=== PATIENT | female | born 1935 | race African-American/Black ===

== ENCOUNTER 2018-01-14 15:02 | Inpatient (IN) | payer MEDICARE ==
[2018-01-14 16:18] LABS: ADD MAN DIFF? NO
[2018-01-14 16:22] LABS: BASO # 0.1 x10^3/uL (0.0-0.2); BASO % 2 % (0-3); EOS # 0.1 x10^3/uL (0.0-0.7); EOS % 1 % (0-3); HEMATOCRIT 39.2 % (36.0-47.0); HEMOGLOBIN 12.4 g/dL (12.0-15.5); LYMPH # 1.2 x10^3/uL (1.0-4.8); LYMPH % 21 % (24-48); MEAN CORPUSCULAR HEMOGLOBIN 25 pg (25-35); MEAN CORPUSCULAR HGB CONC 32 g/dL (31-37); MEAN CORPUSCULAR VOLUME 78 fL (79-100); MONO # 0.6 x10^3/uL (0.0-1.1); MONO % 10 % (0-9); NEUT # 3.8 x10^3uL (1.8-7.7); NEUT % 66 % (31-73); PLATELET COUNT 327 x10^3/uL (140-400); RED BLOOD COUNT 5.02 x10^6/uL (3.50-5.40); WHITE BLOOD COUNT 5.7 x10^3/uL (4.0-11.0)
[2018-01-14] MEDS: dilTIAZem IV PUSH 25 MG/5 ML VIAL IVP ×2 (16:23→16:45)
[2018-01-14] MEDS: DEXTROSE 5% IV (16:30)
[2018-01-14] MEDS: DILTIAZEM IV (16:30)
[2018-01-14 16:34] LABS: ANION GAP 9 (6-14); BLOOD UREA NITROGEN 24 mg/dL (7-20); BUN/CREATININE RATIO 20 (6-20); CALCIUM 8.5 mg/dL (8.5-10.1); CARBON DIOXIDE 31 mmol/L (21-32); CHLORIDE 105 mmol/L (98-107); CREATININE 1.2 mg/dL (0.6-1.0); GFR 52.3; GLUCOSE 84 mg/dL (70-99); POTASSIUM 4.1 mmol/L (3.5-5.1); SODIUM 145 mmol/L (136-145)
[2018-01-14 16:41] LABS: ALBUMIN 2.8 g/dL (3.4-5.0); ALBUMIN/GLOBULIN RATIO 0.6 (1.0-1.7); ALK PHOS 61 U/L (46-116); ALT (SGPT) 25 U/L (14-59); AST (SGOT) 28 U/L (15-37); MAGNESIUM 1.9 mg/dL (1.8-2.4); TOTAL BILIRUBIN 1.4 mg/dL (0.2-1.0); TOTAL PROTEIN 7.3 g/dL (6.4-8.2)
[2018-01-14 16:42] LABS: TROPONINI 0.047 ng/mL (0.000-0.055)
[2018-01-14 17:10] LABS: NT-PRO BNP 3613 pg/mL (0-449)
[2018-01-14 17:10] LABS: CKMB INDEX 1.6 % (0-4); CKMB MASS 1.8 ng/mL (0.0-3.6); CREATINE KINASE 115 U/L (26-192)
[2018-01-14] MEDS: APIXABAN 2.5 MG TABLET. PO (20:42)
[2018-01-14 21:03] LABS: TROPONINI 0.043 ng/mL (0.000-0.055)
[2018-01-15] MEDS: FUROSEMIDE 40 MG TABLET. PO (09:00)
[2018-01-15] MEDS: ATORVASTATIN CALCIUM 10 MG TABLET. PO (09:00)
[2018-01-15] MEDS ORDERED: ENOXAPARIN 40 MG/0.4 ML SYRINGE. SQ (09:00)
[2018-01-15] MEDS ORDERED: DIGOXIN IV 500 MCG/2 ML AMPUL. IV (11:30)
[2018-01-15] MEDS ORDERED: METOPROLOL TARTRATE 5 MG/5 ML VIAL. IVP (11:30)
[2018-01-15] MEDS: METOPROLOL TARTRATE 5 MG/5 ML VIAL. IVP (11:32)
[2018-01-15] MEDS: DIGOXIN IV 500 MCG/2 ML AMPUL. IV (11:33)
[2018-01-15] MEDS: METOPROLOL SUCC 24HR ER 50 MG TAB.ER.24H. PO (11:34)
[2018-01-15] MEDS: APIXABAN 2.5 MG TABLET. PO ×2 (11:34→20:39)
[2018-01-15] MEDS: FERROUS SULFATE 325 MG TABLET. PO (11:34)
[2018-01-15 12:25] LABS: ANION GAP 6 (6-14); BLOOD UREA NITROGEN 24 mg/dL (7-20); CALCIUM 9.1 mg/dL (8.5-10.1); CARBON DIOXIDE 32 mmol/L (21-32); CHLORIDE 104 mmol/L (98-107); CREATININE 1.3 mg/dL (0.6-1.0); GFR 47.7; GLUCOSE 94 mg/dL (70-99); POTASSIUM 4.1 mmol/L (3.5-5.1); SODIUM 142 mmol/L (136-145)
[2018-01-15 12:28] LABS: MAGNESIUM 2.1 mg/dL (1.8-2.4)
[2018-01-15 12:34] LABS: CHOLESTEROL 96 mg/dL (0-200); CHOLESTEROL/HDL RATIO 2.3; HDLC 42 mg/dL (40-60); LDLC 42 mg/dL (0-100); NON-HDL CHOLESTEROL 54 mg/dL (0-129); TRIGLYCERIDES 62 mg/dL (0-150); VLDLC 12 mg/dL (0-40)
[2018-01-15 12:43] LABS: THYROID STIM HORMONE (TSH) 1.464 uIU/mL (0.358-3.74)
[2018-01-15] MEDS: ANTI-COAG MONITOR BY PHARMACY. MC (13:59)
[2018-01-15] MEDS: FUROSEMIDE 40 MG/4 ML VIAL. IVP (14:03)
[2018-01-16 05:03] LABS: ADD MAN DIFF? NO
[2018-01-16 05:06] LABS: BASO # 0.1 x10^3/uL (0.0-0.2); BASO % 2 % (0-3); EOS % 1 % (0-3); HEMATOCRIT 37.9 % (36.0-47.0); HEMOGLOBIN 11.9 g/dL (12.0-15.5); LYMPH # 1.6 x10^3/uL (1.0-4.8); LYMPH % 27 % (24-48); MEAN CORPUSCULAR HEMOGLOBIN 24 pg (25-35); MEAN CORPUSCULAR HGB CONC 31 g/dL (31-37); MEAN CORPUSCULAR VOLUME 78 fL (79-100); MONO # 0.6 x10^3/uL (0.0-1.1); MONO % 10 % (0-9); NEUT # 3.6 x10^3uL (1.8-7.7); NEUT % 60 % (31-73); PLATELET COUNT 282 x10^3/uL (140-400); RED BLOOD COUNT 4.86 x10^6/uL (3.50-5.40); RED CELL DISTRIBUTION WIDTH 19.3 % (11.5-14.5); WHITE BLOOD COUNT 5.9 x10^3/uL (4.0-11.0)
[2018-01-16 05:36] LABS: ANION GAP 3 (6-14); BLOOD UREA NITROGEN 24 mg/dL (7-20); CALCIUM 8.5 mg/dL (8.5-10.1); CARBON DIOXIDE 32 mmol/L (21-32); CHLORIDE 107 mmol/L (98-107); CREATININE 1.3 mg/dL (0.6-1.0); GFR 47.7; GLUCOSE 79 mg/dL (70-99); POTASSIUM 3.9 mmol/L (3.5-5.1); SODIUM 142 mmol/L (136-145)
[2018-01-16] MEDS: FERROUS SULFATE 325 MG TABLET. PO (08:49)
[2018-01-16] MEDS: ATORVASTATIN CALCIUM 10 MG TABLET. PO (08:49)
[2018-01-16] MEDS: APIXABAN 2.5 MG TABLET. PO ×2 (08:49→21:21)
[2018-01-16] MEDS: FUROSEMIDE 40 MG/4 ML VIAL. IVP ×2 (08:50→09:15)
[2018-01-16] MEDS: FUROSEMIDE 40 MG TABLET. PO (08:50)
[2018-01-16] MEDS: ANTI-COAG MONITOR BY PHARMACY. MC (08:53)
[2018-01-16] MEDS ORDERED: LISINOPRIL 20 MG TABLET PO (09:00)
[2018-01-16] MEDS: METOPROLOL SUCC 24HR ER 100 MG TAB.ER.24H. PO (10:52)
[2018-01-16] MEDS: LOSARTAN POTASSIUM 25 MG TABLET. PO (15:29)
[2018-01-17] MEDS: cloNIDine HCL 0.1 MG TABLET PO ×2 (02:28→23:41)
[2018-01-17 06:32] LABS: ANION GAP 3 (6-14); BLOOD UREA NITROGEN 22 mg/dL (7-20); CALCIUM 8.4 mg/dL (8.5-10.1); CARBON DIOXIDE 31 mmol/L (21-32); CHLORIDE 107 mmol/L (98-107); CREATININE 1.4 mg/dL (0.6-1.0); GFR 43.8; GLUCOSE 77 mg/dL (70-99); POTASSIUM 3.7 mmol/L (3.5-5.1); SODIUM 141 mmol/L (136-145)
[2018-01-17] MEDS: LOSARTAN POTASSIUM 25 MG TABLET. PO (09:00)
[2018-01-17] MEDS: REGADENOSON 0.4 MG/5 ML DISP.SYRIN. IV (09:48)
[2018-01-17] MEDS: FERROUS SULFATE 325 MG TABLET. PO (10:15)
[2018-01-17] MEDS: FUROSEMIDE 40 MG TABLET. PO (10:15)
[2018-01-17] MEDS: ATORVASTATIN CALCIUM 10 MG TABLET. PO (10:15)
[2018-01-17] MEDS: APIXABAN 2.5 MG TABLET. PO ×2 (10:16→21:03)
[2018-01-17] MEDS: METOPROLOL SUCC 24HR ER 100 MG TAB.ER.24H. PO (10:16)
[2018-01-17] MEDS: LOSARTAN POTASSIUM 50 MG TABLET. PO (10:16)
[2018-01-18] MEDS: ATORVASTATIN CALCIUM 10 MG TABLET. PO (08:24)
[2018-01-18] MEDS: FUROSEMIDE 40 MG TABLET. PO (08:25)
[2018-01-18] MEDS: APIXABAN 2.5 MG TABLET. PO (08:25)
[2018-01-18] MEDS: METOPROLOL SUCC 24HR ER 100 MG TAB.ER.24H. PO (08:25)
[2018-01-18] MEDS: LOSARTAN POTASSIUM 50 MG TABLET. PO (08:25)
[2018-01-18] MEDS: FERROUS SULFATE 325 MG TABLET. PO (08:25)
== END 2018-01-18 16:06 | disposition home or self-care (01) | DRG 682 ==
LOC: ER 15:02 → 2 NORTH 17:11
DX: N17.9 Acute kidney failure, unspecified (principal); I50.43 Acute on chronic combined systolic (congestive) and diastolic (congestive) heart failure; E44.0 Moderate protein-calorie malnutrition; I48.91 Unspecified atrial fibrillation; J44.9 Chronic obstructive pulmonary disease, unspecified; E55.9 Vitamin D deficiency, unspecified; E78.5 Hyperlipidemia, unspecified; I25.10 Atherosclerotic heart disease of native coronary artery without angina pectoris; I13.0 Hypertensive heart and chronic kidney disease with heart failure and stage 1 through stage 4 chronic kidney disease, or unspecified chronic kidney disease; I48.92 Unspecified atrial flutter; N18.3 Chronic kidney disease, stage 3 (moderate); S80.822A Blister (nonthermal), left lower leg, initial encounter; M19.90 Unspecified osteoarthritis, unspecified site; Z79.82 Long term (current) use of aspirin; Z82.49 Family history of ischemic heart disease and other diseases of the circulatory system; Z87.891 Personal history of nicotine dependence; Z90.710 Acquired absence of both cervix and uterus; Z95.1 Presence of aortocoronary bypass graft; Z90.722 Acquired absence of ovaries, bilateral; Z79.899 Other long term (current) drug therapy; Z68.20 Body mass index [BMI] 20.0-20.9, adult
CPT/HCPCS: 36415; 71045; 71046; 71250; 78452; 80048; 80053; 80061; 82553; 83735; 83880; 84443; 84484; 85025; 93005; 93017; 93306; 96365; 96374; 96375; 96376; 97110-GO; 97116-GP; 97162-GP; 97165-GO; 97530-GO; 97530-GP; 97535-GO; 99285; 99285-25; A9500; J1160; J1940; J2785; J3490

== ENCOUNTER 2018-02-24 20:39 | Inpatient (IN) | payer MEDICARE ==
[2018-02-24 21:35] LABS: ADD MAN DIFF? NO
[2018-02-24 21:38] LABS: BASO # 0.1 x10^3/uL (0.0-0.2); BASO % 1 % (0-3); EOS # 0.1 x10^3/uL (0.0-0.7); EOS % 1 % (0-3); HEMATOCRIT 41.2 % (36.0-47.0); LYMPH # 1.2 x10^3/uL (1.0-4.8); LYMPH % 19 % (24-48); MEAN CORPUSCULAR HEMOGLOBIN 25 pg (25-35); MEAN CORPUSCULAR HGB CONC 32 g/dL (31-37); MEAN CORPUSCULAR VOLUME 79 fL (79-100); MONO # 0.6 x10^3/uL (0.0-1.1); MONO % 10 % (0-9); NEUT # 4.4 x10^3uL (1.8-7.7); NEUT % 70 % (31-73); PLATELET COUNT 276 x10^3/uL (140-400); RED BLOOD COUNT 5.24 x10^6/uL (3.50-5.40); RED CELL DISTRIBUTION WIDTH 23.1 % (11.5-14.5); WHITE BLOOD COUNT 6.4 x10^3/uL (4.0-11.0)
[2018-02-24 21:48] LABS: ANION GAP 8 (6-14); BLOOD UREA NITROGEN 32 mg/dL (7-20); CALCIUM 8.8 mg/dL (8.5-10.1); CARBON DIOXIDE 31 mmol/L (21-32); CHLORIDE 104 mmol/L (98-107); CREATININE 1.4 mg/dL (0.6-1.0); GFR 43.8; GLUCOSE 98 mg/dL (70-99); POTASSIUM 3.9 mmol/L (3.5-5.1); SODIUM 143 mmol/L (136-145)
[2018-02-24 21:56] LABS: INR 1.7 (0.8-1.1)
[2018-02-24 21:58] LABS: TROPONINI 0.043 ng/mL (0.000-0.055)
[2018-02-24 22:02] LABS: NT-PRO BNP 2962 pg/mL (0-449)
[2018-02-24] MEDS: VERAPAMIL 5 MG/2 ML VIAL. IV ×2 (22:15→22:47)
[2018-02-24 22:22] LABS: PLT ESTIMATE ADEQUATE (ADEQUATE)
[2018-02-24 22:24] LABS: ANISOCYTOSIS MOD; TARGET CELLS FEW
[2018-02-24 22:25] LABS: SCHISTOCYTES FEW
[2018-02-24] MEDS ORDERED: ONDANSETRON PF 4 MG/2 ML VIAL. IV (23:45)
[2018-02-24] MEDS ORDERED: RIVAROXABAN 10 MG TABLET. PO (23:45)
[2018-02-25] MEDS: APIXABAN 2.5 MG TABLET. PO ×3 (00:16→20:21)
[2018-02-25] MEDS: METOPROLOL TART IMMED RELEASE 25 MG TABLET. PO (00:17)
[2018-02-25] MEDS: IPRATRPIUM/ALBUTEROL 0.5/2.5MG 3 ML NEBU. NEB ×3 (07:28→20:05)
[2018-02-25] MEDS ORDERED: ALBUTEROL SULFATE 2.5 MG/3 ML NEBU. NEB (08:00)
[2018-02-25] MEDS: BENZONATATE 100 MG CAPSULE. PO ×2 (14:41→20:21)
[2018-02-25] MEDS: amLODIPine BESYLATE 5 MG TABLET PO (14:42)
[2018-02-25] MEDS: FUROSEMIDE 40 MG TABLET. PO (14:42)
[2018-02-25] MEDS: FERROUS SULFATE 325 MG TABLET. PO (14:42)
[2018-02-25] MEDS: METOPROLOL SUCC 24HR ER 50 MG TAB.ER.24H. PO (14:43)
[2018-02-25] MEDS: ANTI-COAG MONITOR BY PHARMACY. MC (16:51)
[2018-02-25] MEDS: ACETAMINOPHEN 325 MG TABLET. PO (20:21)
[2018-02-25] MEDS: ATORVASTATIN CALCIUM 10 MG TABLET. PO (20:21)
[2018-02-25] MEDS ORDERED: APIXABAN 2.5 MG TABLET. PO (21:00)
[2018-02-26 05:12] LABS: ADD MAN DIFF? NO
[2018-02-26 05:33] LABS: ANION GAP 10 (6-14); BLOOD UREA NITROGEN 38 mg/dL (7-20); CALCIUM 9.3 mg/dL (8.5-10.1); CARBON DIOXIDE 28 mmol/L (21-32); CHLORIDE 103 mmol/L (98-107); CREATININE 2.1 mg/dL (0.6-1.0); GFR 27.4; GLUCOSE 78 mg/dL (70-99); POTASSIUM 4.3 mmol/L (3.5-5.1); SODIUM 141 mmol/L (136-145)
[2018-02-26 06:15] LABS: BASO # 0.1 x10^3/uL (0.0-0.2); BASO % 1 % (0-3); EOS % 0 % (0-3); HEMATOCRIT 40.5 % (36.0-47.0); HEMOGLOBIN 12.7 g/dL (12.0-15.5); LYMPH # 1.7 x10^3/uL (1.0-4.8); LYMPH % 24 % (24-48); MEAN CORPUSCULAR HEMOGLOBIN 25 pg (25-35); MEAN CORPUSCULAR HGB CONC 31 g/dL (31-37); MEAN CORPUSCULAR VOLUME 79 fL (79-100); MONO # 0.6 x10^3/uL (0.0-1.1); MONO % 9 % (0-9); NEUT # 4.6 x10^3uL (1.8-7.7); NEUT % 65 % (31-73); PLATELET COUNT 256 x10^3/uL (140-400); RED BLOOD COUNT 5.11 x10^6/uL (3.50-5.40); RED CELL DISTRIBUTION WIDTH 23.2 % (11.5-14.5)
[2018-02-26] MEDS: IPRATRPIUM/ALBUTEROL 0.5/2.5MG 3 ML NEBU. NEB ×4 (08:24→20:24)
[2018-02-26] MEDS: APIXABAN 2.5 MG TABLET. PO ×2 (08:43→20:29)
[2018-02-26] MEDS: BENZONATATE 100 MG CAPSULE. PO ×3 (08:43→20:29)
[2018-02-26] MEDS: amLODIPine BESYLATE 5 MG TABLET PO (08:43)
[2018-02-26] MEDS: FERROUS SULFATE 325 MG TABLET. PO (08:43)
[2018-02-26] MEDS: METOPROLOL SUCC 24HR ER 50 MG TAB.ER.24H. PO (08:43)
[2018-02-27 03:59] LABS: ANION GAP 5 (6-14); BLOOD UREA NITROGEN 47 mg/dL (7-20); CALCIUM 8.9 mg/dL (8.5-10.1); CARBON DIOXIDE 30 mmol/L (21-32); CHLORIDE 102 mmol/L (98-107); CREATININE 2.3 mg/dL (0.6-1.0); GFR 24.7; GLUCOSE 78 mg/dL (70-99); POTASSIUM 3.7 mmol/L (3.5-5.1); SODIUM 137 mmol/L (136-145)
[2018-02-27] MEDS: IPRATRPIUM/ALBUTEROL 0.5/2.5MG 3 ML NEBU. NEB ×4 (07:25→19:39)
[2018-02-27] MEDS: ANTI-COAG MONITOR BY PHARMACY. MC (08:55)
[2018-02-27] MEDS: FERROUS SULFATE 325 MG TABLET. PO (09:03)
[2018-02-27] MEDS: BENZONATATE 100 MG CAPSULE. PO ×3 (09:03→20:52)
[2018-02-27] MEDS: METOPROLOL SUCC 24HR ER 50 MG TAB.ER.24H. PO (09:03)
[2018-02-27] MEDS: amLODIPine BESYLATE 2.5 MG TABLET PO (09:03)
[2018-02-27] MEDS: APIXABAN 2.5 MG TABLET. PO ×2 (09:03→20:52)
[2018-02-27] MEDS: IV NORMAL SALINE 1000ML BAG 1,000 ML IV ×2 (09:04→23:00)
[2018-02-28 04:23] LABS: ANION GAP 11 (6-14); BLOOD UREA NITROGEN 43 mg/dL (7-20); CALCIUM 8.7 mg/dL (8.5-10.1); CARBON DIOXIDE 25 mmol/L (21-32); CHLORIDE 103 mmol/L (98-107); CREATININE 2.2 mg/dL (0.6-1.0); GLUCOSE 79 mg/dL (70-99); POTASSIUM 3.7 mmol/L (3.5-5.1); SODIUM 139 mmol/L (136-145)
[2018-02-28] MEDS: IPRATRPIUM/ALBUTEROL 0.5/2.5MG 3 ML NEBU. NEB ×4 (08:00→19:42)
[2018-02-28] MEDS: APIXABAN 2.5 MG TABLET. PO ×2 (08:51→21:57)
[2018-02-28] MEDS: BENZONATATE 100 MG CAPSULE. PO ×3 (08:52→21:57)
[2018-02-28] MEDS: METOPROLOL SUCC 24HR ER 50 MG TAB.ER.24H. PO (08:52)
[2018-02-28] MEDS: FERROUS SULFATE 325 MG TABLET. PO (08:52)
[2018-02-28] MEDS: amLODIPine BESYLATE 2.5 MG TABLET PO (08:52)
[2018-02-28] MEDS: amLODIPine BESYLATE 5 MG TABLET PO (09:58)
[2018-02-28] MEDS: ANTI-COAG MONITOR BY PHARMACY. MC (10:28)
[2018-02-28] MEDS: IV NORMAL SALINE 1000ML BAG 1,000 ML IV (10:55)
[2018-02-28] MEDS: METOPROLOL TARTRATE 5 MG/5 ML VIAL. IVP (13:33)
[2018-02-28] MEDS: FUROSEMIDE 20 MG/2 ML VIAL. IVP (16:01)
[2018-02-28] MEDS: METOPROLOL TART IMMED RELEASE 25 MG TABLET. PO (17:43)
[2018-03-01] MEDS: METOPROLOL TART IMMED RELEASE 25 MG TABLET. PO ×3 (00:28→08:24)
[2018-03-01 05:48] LABS: ANION GAP 4 (6-14); BLOOD UREA NITROGEN 39 mg/dL (7-20); CALCIUM 8.6 mg/dL (8.5-10.1); CARBON DIOXIDE 30 mmol/L (21-32); CHLORIDE 104 mmol/L (98-107); CREATININE 1.8 mg/dL (0.6-1.0); GFR 32.8; GLUCOSE 69 mg/dL (70-99); POTASSIUM 4.4 mmol/L (3.5-5.1); SODIUM 138 mmol/L (136-145)
[2018-03-01] MEDS: ANTI-COAG MONITOR BY PHARMACY. MC (07:40)
[2018-03-01] MEDS: IPRATRPIUM/ALBUTEROL 0.5/2.5MG 3 ML NEBU. NEB ×2 (08:11→12:12)
[2018-03-01] MEDS: FERROUS SULFATE 325 MG TABLET. PO (08:23)
[2018-03-01] MEDS: FUROSEMIDE 20 MG TABLET PO (08:23)
[2018-03-01] MEDS: BENZONATATE 100 MG CAPSULE. PO ×2 (08:24→13:34)
[2018-03-01] MEDS: APIXABAN 2.5 MG TABLET. PO (08:24)
[2018-03-01] MEDS: amLODIPine BESYLATE 5 MG TABLET PO (08:24)
[2018-03-01] MEDS ORDERED: FUROSEMIDE 40 MG TABLET. PO (09:00)
[2018-03-01] MEDS: FUROSEMIDE 20 MG/2 ML VIAL. IVP (14:33)
[2018-03-01] MEDS ORDERED: METOPROLOL TART IMMED RELEASE 25 MG TABLET. PO (21:00)
== END 2018-03-01 16:32 | disposition home or self-care (01) | DRG 682 ==
LOC: 2 SOUTH 23:30 → ER 20:39
DX: N17.0 Acute kidney failure with tubular necrosis (principal); I50.43 Acute on chronic combined systolic (congestive) and diastolic (congestive) heart failure; I13.0 Hypertensive heart and chronic kidney disease with heart failure and stage 1 through stage 4 chronic kidney disease, or unspecified chronic kidney disease; I42.0 Dilated cardiomyopathy; I48.2 Chronic atrial fibrillation; D63.8 Anemia in other chronic diseases classified elsewhere; E78.00 Pure hypercholesterolemia, unspecified; E78.5 Hyperlipidemia, unspecified; F03.90 Unspecified dementia, unspecified severity, without behavioral disturbance, psychotic disturbance, mood disturbance, and anxiety; F17.210 Nicotine dependence, cigarettes, uncomplicated; I07.1 Rheumatic tricuspid insufficiency; I25.10 Atherosclerotic heart disease of native coronary artery without angina pectoris; I25.5 Ischemic cardiomyopathy; J44.9 Chronic obstructive pulmonary disease, unspecified; N18.3 Chronic kidney disease, stage 3 (moderate); Z79.01 Long term (current) use of anticoagulants; Z79.82 Long term (current) use of aspirin; Z82.49 Family history of ischemic heart disease and other diseases of the circulatory system; Z90.710 Acquired absence of both cervix and uterus; Z95.1 Presence of aortocoronary bypass graft; M19.90 Unspecified osteoarthritis, unspecified site; D64.9 Anemia, unspecified
CPT/HCPCS: 36415; 71045; 80048; 83880; 84484; 85025; 85610; 93005; 94640; 94760; 96376; 97161-GP; 97166-GO; 97530-GO; 97535-GO; 99285; 99285-25; J3490; J7030; J7620

== ENCOUNTER 2018-04-10 16:44 | Inpatient (IN) | payer MEDICARE ==
[2018-04-10 17:04] LABS: ADD MAN DIFF? NO
[2018-04-10 17:09] LABS: BASO % 1 % (0-3); EOS # 0.1 x10^3/uL (0.0-0.7); EOS % 1 % (0-3); HEMOGLOBIN 14.6 g/dL (12.0-15.5); LYMPH # 0.8 x10^3/uL (1.0-4.8); LYMPH % 14 % (24-48); MEAN CORPUSCULAR HEMOGLOBIN 26 pg (25-35); MEAN CORPUSCULAR HGB CONC 32 g/dL (31-37); MEAN CORPUSCULAR VOLUME 81 fL (79-100); MONO # 0.4 x10^3/uL (0.0-1.1); MONO % 7 % (0-9); NEUT # 4.5 x10^3uL (1.8-7.7); NEUT % 77 % (31-73); PLATELET COUNT 196 x10^3/uL (140-400); RED BLOOD COUNT 5.64 x10^6/uL (3.50-5.40); RED CELL DISTRIBUTION WIDTH 24.3 % (11.5-14.5); WHITE BLOOD COUNT 5.9 x10^3/uL (4.0-11.0)
[2018-04-10] MEDS: dilTIAZem INJ 125 MG in IV DEXTROSE 5% 100ML 100 ML IV (17:10)
[2018-04-10] MEDS: dilTIAZem IV PUSH 25 MG/5 ML VIAL IVP (17:10)
[2018-04-10 17:16] LABS: INR 1.4 (0.8-1.1); PROTHROMBIN TIME PATIENT 16.3 SEC (11.7-14.0)
[2018-04-10 17:17] LABS: ANION GAP 7 (6-14); BLOOD UREA NITROGEN 29 mg/dL (7-20); BUN/CREATININE RATIO 18 (6-20); CALCIUM 8.8 mg/dL (8.5-10.1); CARBON DIOXIDE 31 mmol/L (21-32); CHLORIDE 103 mmol/L (98-107); CREATININE 1.6 mg/dL (0.6-1.0); GFR 37.5; GLUCOSE 91 mg/dL (70-99); SODIUM 141 mmol/L (136-145)
[2018-04-10 17:23] LABS: ALBUMIN 2.6 g/dL (3.4-5.0); ALBUMIN/GLOBULIN RATIO 0.5 (1.0-1.7); ALK PHOS 66 U/L (46-116); ALT (SGPT) 21 U/L (14-59); AST (SGOT) 29 U/L (15-37); LIPASE 215 U/L (73-393); MAGNESIUM 1.9 mg/dL (1.8-2.4); TOTAL BILIRUBIN 2.2 mg/dL (0.2-1.0); TOTAL PROTEIN 7.5 g/dL (6.4-8.2)
[2018-04-10 17:24] LABS: TROPONINI 0.026 ng/mL (0.000-0.055)
[2018-04-10 17:31] LABS: NT-PRO BNP 4514 pg/mL (0-449)
[2018-04-10 17:31] LABS: CKMB INDEX 1.3 % (0-4); CKMB MASS 1.9 ng/mL (0.0-3.6); CREATINE KINASE 151 U/L (26-192)
[2018-04-10] MEDS: POTASSIUM CHLORIDE 20 MEQ TABLET.ER. PO (17:55)
[2018-04-10] MEDS: BUMETANIDE 1 MG/4 ML VIAL. IV (17:55)
[2018-04-10 19:21] LABS: ANISOCYTOSIS SLIGHT; PLT ESTIMATE ADEQUATE (ADEQUATE)
[2018-04-10 21:36] LABS: TROPONINI 0.029 ng/mL (0.000-0.055)
[2018-04-11] MEDS: dilTIAZem INJ 125 MG in IV DEXTROSE 5% 100ML 100 ML IV (01:57)
[2018-04-11 06:23] LABS: ANION GAP 7 (6-14); BLOOD UREA NITROGEN 28 mg/dL (7-20); CALCIUM 8.7 mg/dL (8.5-10.1); CARBON DIOXIDE 30 mmol/L (21-32); CHLORIDE 106 mmol/L (98-107); CREATININE 1.6 mg/dL (0.6-1.0); GFR 37.5; GLUCOSE 98 mg/dL (70-99); POTASSIUM 3.2 mmol/L (3.5-5.1); SODIUM 143 mmol/L (136-145)
[2018-04-11 08:42] LABS: MAGNESIUM 1.9 mg/dL (1.8-2.4)
[2018-04-11] MEDS: METOPROLOL SUCC 24HR ER 50 MG TAB.ER.24H. PO (08:47)
[2018-04-11] MEDS: FUROSEMIDE 40 MG/4 ML VIAL. IVP ×3 (08:47→21:11)
[2018-04-11] MEDS: POTASSIUM CHLORIDE 20 MEQ TABLET.ER. PO ×2 (08:47→17:59)
[2018-04-11] MEDS: FERROUS SULFATE 325 MG TABLET. PO (08:47)
[2018-04-11] MEDS: APIXABAN 2.5 MG TABLET. PO ×2 (08:47→21:05)
[2018-04-11 08:56] LABS: THYROID STIM HORMONE (TSH) 3.214 uIU/mL (0.358-3.74)
[2018-04-11] MEDS: METOPROLOL TART IMMED RELEASE 25 MG TABLET. PO ×4 (09:30→23:19)
[2018-04-11 10:31] LABS: BILIRUBIN,URINE NEGATIVE (NEG); CLARITY,URINE CLOUDY; COLOR,URINE AMBER; GLUCOSE,URINE NEGATIVE (NEG); NITRITE,URINE NEGATIVE (NEG); PROTEIN,URINE NEGATIVE (NEG-TRACE)
[2018-04-11 10:44] LABS: SQUAMOUS EPITHELIAL CELL,UR FEW /LPF
[2018-04-11 10:45] LABS: AMORPHOUS SEDIMENT,UR PRESENT /HPF; BACTERIA,URINE 0 /HPF (0-FEW); HYALINE CASTS, URINE FEW /HPF; RBC,URINE 0 /HPF (0-2); WBC,URINE 0 /HPF (0-4)
[2018-04-11] MEDS: ANTI-COAG MONITOR BY PHARMACY. MC (15:01)
[2018-04-11] MEDS: NYSTATIN TOPICAL POWDER 15GM BOTTLE. TP (21:05)
[2018-04-11] MEDS: FUROSEMIDE INJ 100 MG in IV NORMAL SALINE 100ML 100 ML IV (21:06)
[2018-04-11] MEDS: MILRINONE 20MG/100ML PREMIX 100 ML IV (21:08)
[2018-04-12 05:30] LABS: ANION GAP 10 (6-14); BLOOD UREA NITROGEN 32 mg/dL (7-20); CALCIUM 8.2 mg/dL (8.5-10.1); CARBON DIOXIDE 24 mmol/L (21-32); CHLORIDE 105 mmol/L (98-107); CREATININE 1.8 mg/dL (0.6-1.0); GFR 32.8; GLUCOSE 69 mg/dL (70-99); SODIUM 139 mmol/L (136-145)
[2018-04-12] MEDS: METOPROLOL TART IMMED RELEASE 25 MG TABLET. PO ×4 (06:06→23:01)
[2018-04-12] MEDS: APIXABAN 2.5 MG TABLET. PO ×2 (08:21→21:00)
[2018-04-12] MEDS: ALBUMIN HUMAN 25% 100 ML IV (08:22)
[2018-04-12] MEDS: POTASSIUM CHLORIDE 20 MEQ TABLET.ER. PO ×2 (08:22→18:09)
[2018-04-12] MEDS: NYSTATIN TOPICAL POWDER 15GM BOTTLE. TP ×2 (08:22→21:00)
[2018-04-12] MEDS: FERROUS SULFATE 325 MG TABLET. PO (08:22)
[2018-04-12] MEDS: ANTI-COAG MONITOR BY PHARMACY. MC (12:27)
[2018-04-12] MEDS ORDERED: LIDOCAINE 2% 20 ML VIAL. (14:36)
[2018-04-12] MEDS ORDERED: IODIXANOL 320 MG/ML 100 ML VIAL. (14:36)
[2018-04-12] MEDS ORDERED: CONTRAST GIVEN. MC (15:00)
[2018-04-12] MEDS: fentaNYL PF VIAL 100 MCG/2 ML VIAL IV (15:00)
[2018-04-12] MEDS: MIDAZOLAM HCL/PF 2 MG/2 ML VIAL. IV (15:00)
[2018-04-12] MEDS ORDERED: fentaNYL PF VIAL 100 MCG/2 ML VIAL (15:05)
[2018-04-12] MEDS ORDERED: MIDAZOLAM HCL/PF 2 MG/2 ML VIAL. (15:05)
[2018-04-12] MEDS ORDERED: HEPARIN for IV BOLUS 10,000 UNIT/10 ML VIAL. (15:34)
[2018-04-12] MEDS: LIDOCAINE 2% 20 ML VIAL. IJ (15:37)
[2018-04-12] MEDS: IODIXANOL 320 MG/ML 100 ML VIAL. IART (15:52)
[2018-04-12] MEDS: HEPARIN for IV BOLUS 10,000 UNIT/10 ML VIAL. IV (15:57)
[2018-04-13] MEDS: METOPROLOL TART IMMED RELEASE 25 MG TABLET. PO ×4 (05:30→23:42)
[2018-04-13] MEDS: MILRINONE 20MG/100ML PREMIX 100 ML IV (05:31)
[2018-04-13] MEDS: FERROUS SULFATE 325 MG TABLET. PO (09:20)
[2018-04-13] MEDS: POTASSIUM CHLORIDE 20 MEQ TABLET.ER. PO ×2 (09:20→17:30)
[2018-04-13] MEDS: APIXABAN 2.5 MG TABLET. PO ×2 (09:20→21:25)
[2018-04-13] MEDS: NYSTATIN TOPICAL POWDER 15GM BOTTLE. TP ×2 (09:21→21:25)
[2018-04-13 10:57] LABS: ANION GAP 6 (6-14); BLOOD UREA NITROGEN 37 mg/dL (7-20); CALCIUM 8.7 mg/dL (8.5-10.1); CARBON DIOXIDE 27 mmol/L (21-32); CHLORIDE 105 mmol/L (98-107); CREATININE 2.3 mg/dL (0.6-1.0); GFR 24.7; GLUCOSE 124 mg/dL (70-99); POTASSIUM 4.5 mmol/L (3.5-5.1); SODIUM 138 mmol/L (136-145)
[2018-04-13 11:05] LABS: MAGNESIUM 2.1 mg/dL (1.8-2.4)
[2018-04-13] MEDS: ALBUMIN HUMAN 25% 100 ML IV (13:47)
[2018-04-13] MEDS: FUROSEMIDE 40 MG/4 ML VIAL. IVP (13:48)
[2018-04-13] MEDS: ANTI-COAG MONITOR BY PHARMACY. MC (15:36)
[2018-04-14 04:37] LABS: ANION GAP 6 (6-14); BLOOD UREA NITROGEN 38 mg/dL (7-20); CALCIUM 8.5 mg/dL (8.5-10.1); CARBON DIOXIDE 25 mmol/L (21-32); CHLORIDE 105 mmol/L (98-107); CREATININE 2.2 mg/dL (0.6-1.0); GLUCOSE 87 mg/dL (70-99); SODIUM 136 mmol/L (136-145)
[2018-04-14] MEDS: METOPROLOL TART IMMED RELEASE 25 MG TABLET. PO ×4 (06:14→23:20)
[2018-04-14] MEDS: ANTI-COAG MONITOR BY PHARMACY. MC (07:52)
[2018-04-14] MEDS: FERROUS SULFATE 325 MG TABLET. PO (09:18)
[2018-04-14] MEDS: POTASSIUM CHLORIDE 20 MEQ TABLET.ER. PO ×2 (09:18→17:22)
[2018-04-14] MEDS: NYSTATIN TOPICAL POWDER 15GM BOTTLE. TP ×2 (09:18→21:14)
[2018-04-14] MEDS: APIXABAN 2.5 MG TABLET. PO ×2 (09:18→21:07)
[2018-04-14] MEDS: ALBUMIN HUMAN 25% 100 ML IV (15:06)
[2018-04-14] MEDS: FUROSEMIDE 40 MG/4 ML VIAL. IVP (15:06)
[2018-04-15 05:48] LABS: ANION GAP 6 (6-14); BLOOD UREA NITROGEN 37 mg/dL (7-20); CALCIUM 8.7 mg/dL (8.5-10.1); CARBON DIOXIDE 27 mmol/L (21-32); CHLORIDE 105 mmol/L (98-107); GLUCOSE 71 mg/dL (70-99); POTASSIUM 4.7 mmol/L (3.5-5.1); SODIUM 138 mmol/L (136-145)
[2018-04-15] MEDS: METOPROLOL TART IMMED RELEASE 25 MG TABLET. PO ×3 (05:57→17:02)
[2018-04-15] MEDS: MILRINONE 20MG/100ML PREMIX 100 ML IV (05:57)
[2018-04-15] MEDS: ANTI-COAG MONITOR BY PHARMACY. MC (07:30)
[2018-04-15] MEDS: FERROUS SULFATE 325 MG TABLET. PO (08:49)
[2018-04-15] MEDS: APIXABAN 2.5 MG TABLET. PO ×2 (08:49→21:18)
[2018-04-15] MEDS: POTASSIUM CHLORIDE 20 MEQ TABLET.ER. PO ×2 (08:50→17:01)
[2018-04-15] MEDS: NYSTATIN TOPICAL POWDER 15GM BOTTLE. TP ×2 (08:50→21:18)
[2018-04-16] MEDS: METOPROLOL TART IMMED RELEASE 25 MG TABLET. PO ×3 (00:29→12:35)
[2018-04-16] MEDS: NYSTATIN TOPICAL POWDER 15GM BOTTLE. TP ×2 (09:00→21:02)
[2018-04-16] MEDS: FUROSEMIDE 40 MG/4 ML VIAL. IVP (09:49)
[2018-04-16] MEDS: FERROUS SULFATE 325 MG TABLET. PO (09:50)
[2018-04-16] MEDS: POTASSIUM CHLORIDE 20 MEQ TABLET.ER. PO ×2 (09:50→17:50)
[2018-04-16] MEDS: APIXABAN 2.5 MG TABLET. PO ×2 (09:50→21:02)
[2018-04-16] MEDS: ALBUMIN HUMAN 25% 100 ML IV (09:51)
[2018-04-16] MEDS: ANTI-COAG MONITOR BY PHARMACY. MC (16:02)
[2018-04-16] MEDS: METOPROLOL SUCC 24HR ER 50 MG TAB.ER.24H. PO (21:33)
[2018-04-17 04:51] LABS: ANION GAP 6 (6-14); BLOOD UREA NITROGEN 36 mg/dL (7-20); CALCIUM 8.8 mg/dL (8.5-10.1); CARBON DIOXIDE 29 mmol/L (21-32); CHLORIDE 104 mmol/L (98-107); GLUCOSE 84 mg/dL (70-99); POTASSIUM 5.2 mmol/L (3.5-5.1); SODIUM 139 mmol/L (136-145)
[2018-04-17] MEDS: APIXABAN 2.5 MG TABLET. PO (08:24)
[2018-04-17] MEDS: FERROUS SULFATE 325 MG TABLET. PO (08:24)
[2018-04-17] MEDS: METOPROLOL SUCC 24HR ER 50 MG TAB.ER.24H. PO (08:25)
[2018-04-17] MEDS: FUROSEMIDE 40 MG TABLET. PO (08:28)
[2018-04-17] MEDS: POTASSIUM CHLORIDE 20 MEQ TABLET.ER. PO (08:30)
[2018-04-17] MEDS: NYSTATIN TOPICAL POWDER 15GM BOTTLE. TP (09:00)
== END 2018-04-17 13:45 | DRG 286 ==
LOC: ER 16:44 → 2 NORTH 17:55
PROC: 4A023N7 Measurement of Cardiac Sampling and Pressure, Left Heart, Percutaneous Approach (ICD-10-PCS; principal; 2018-04-12)
PROC: B2131ZZ Fluoroscopy of Multiple Coronary Artery Bypass Grafts using Low Osmolar Contrast (ICD-10-PCS; 2018-04-12)
PROC: B2111ZZ Fluoroscopy of Multiple Coronary Arteries using Low Osmolar Contrast (ICD-10-PCS; 2018-04-12)
PROC: B2151ZZ Fluoroscopy of Left Heart using Low Osmolar Contrast (ICD-10-PCS; 2018-04-12)
DX: I13.0 Hypertensive heart and chronic kidney disease with heart failure and stage 1 through stage 4 chronic kidney disease, or unspecified chronic kidney disease (principal); I50.43 Acute on chronic combined systolic (congestive) and diastolic (congestive) heart failure; N17.9 Acute kidney failure, unspecified; E46 Unspecified protein-calorie malnutrition; I42.9 Cardiomyopathy, unspecified; Z66 Do not resuscitate; J44.9 Chronic obstructive pulmonary disease, unspecified; E78.00 Pure hypercholesterolemia, unspecified; I48.2 Chronic atrial fibrillation; I27.20 Pulmonary hypertension, unspecified; I25.10 Atherosclerotic heart disease of native coronary artery without angina pectoris; N18.3 Chronic kidney disease, stage 3 (moderate); I07.1 Rheumatic tricuspid insufficiency; E87.6 Hypokalemia; E78.5 Hyperlipidemia, unspecified; F03.90 Unspecified dementia, unspecified severity, without behavioral disturbance, psychotic disturbance, mood disturbance, and anxiety; M19.90 Unspecified osteoarthritis, unspecified site; Z68.25 Body mass index [BMI] 25.0-25.9, adult; Z90.722 Acquired absence of ovaries, bilateral; Z88.8 Allergy status to other drugs, medicaments and biological substances; Z79.01 Long term (current) use of anticoagulants; Z79.899 Other long term (current) drug therapy; Z87.891 Personal history of nicotine dependence; Z82.49 Family history of ischemic heart disease and other diseases of the circulatory system; Z95.1 Presence of aortocoronary bypass graft; Z90.710 Acquired absence of both cervix and uterus
CPT/HCPCS: 36415; 71045; 80048; 80053; 81001; 82553; 83690; 83735; 83880; 84443; 84484; 85025; 85610; 93005; 93308; 93458; 96365; 96366; 96375; 96376; 97116-GP; 97163-GP; 97166-GO; 99285; 99285-25; C1769; C1771; C1892; G0269; J1644; J1940; J2001; J2260; J3490; P9046

== ENCOUNTER → 2018-05-24 | Outpatient (CLI) | payer MEDICARE ==
[2018-04-17 10:54] VITALS: BP 129/76
[~2018-05-24] MED LIST: AMLO5TAB7 PO; APIX2.5T PO; ASPI325T70 PO; ATOR10TA60 PO; ATOR40TA59 PO; BENZ-8 PO; CARV3.122 PO; FERR325T14 PO; FURO-68 PO; FURO-69 PO; FURO40TA4 PO; IRON1TAB2 PO; LISI-130 PO; LISI10TA2 PO; LISI1TAB3 PO; METO-239 PO; METO-269 PO; METO50TA6 PO; PRAV20TA2 PO
--- NOTE | 2018-05-24 13:41 | RAD ---
Bilateral lower extremity arterial ultrasound, 05/24/2018: HISTORY: Nonhealing lower extremity wounds Duplex evaluation of the major arteries in both lower extremities was performed including grayscale, color-flow and spectral Doppler analysis. There are moderate scattered atherosclerotic plaques bilaterally. On the right, the common femoral, superficial femoral and popliteal arteries all demonstrate monophasic Doppler waveforms. No significant focal velocity acceleration is seen in these vessels to suggest high-grade focal stenosis. Patent posterior tibial and anterior tibial arteries are present in the right lower leg demonstrating dampened monophasic Doppler waveforms. A patent right peroneal artery could not be identified. The right dorsalis pedis artery is patent with a dampened monophasic Doppler waveform. On the left, the common femoral, superficial femoral and popliteal arteries all demonstrate monophasic Doppler waveforms. No significant focal velocity acceleration is seen to suggest high-grade focal stenosis in these vessels. Patent posterior tibial, anterior tibial and peroneal arteries are present left lower leg demonstrating monophasic Doppler waveforms. The left dorsalis pedis artery is also patent with a dampened monophasic Doppler waveform. Moderate subcutaneous edema is noted, worse on the right. IMPRESSION: 1. Moderate scattered atherosclerotic plaquing bilaterally. 2. Monophasic Doppler waveforms at the common femoral artery levels bilaterally suggesting aortoiliac inflow disease. 3. No high-grade focal femoral-popliteal stenosis is identified. 4. 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 5. Moderate degradation of the Doppler waveforms in both lower legs and at the dorsalis pedis arteries, worse on the right. Electronically signed by: Kirill Sullivan MD (05/24/2018 1:38 PM) [facility]
== END | disposition home or self-care (01) ==
LOC: PMGWOUND 07:44
PROVIDERS: ATTEND Emergency Medicine Undersea and Hyperbaric Medicine
DX: I87.313 Chronic venous hypertension (idiopathic) with ulcer of bilateral lower extremity (principal); L97.821 Non-pressure chronic ulcer of other part of left lower leg limited to breakdown of skin; L97.211 Non-pressure chronic ulcer of right calf limited to breakdown of skin; L97.221 Non-pressure chronic ulcer of left calf limited to breakdown of skin; L97.521 Non-pressure chronic ulcer of other part of left foot limited to breakdown of skin; L97.511 Non-pressure chronic ulcer of other part of right foot limited to breakdown of skin; I70.245 Atherosclerosis of native arteries of left leg with ulceration of other part of foot; I70.235 Atherosclerosis of native arteries of right leg with ulceration of other part of foot; I13.0 Hypertensive heart and chronic kidney disease with heart failure and stage 1 through stage 4 chronic kidney disease, or unspecified chronic kidney disease; N18.3 Chronic kidney disease, stage 3 (moderate); I50.43 Acute on chronic combined systolic (congestive) and diastolic (congestive) heart failure; F03.90 Unspecified dementia, unspecified severity, without behavioral disturbance, psychotic disturbance, mood disturbance, and anxiety; E78.5 Hyperlipidemia, unspecified; I48.2 Chronic atrial fibrillation; I42.9 Cardiomyopathy, unspecified; J44.9 Chronic obstructive pulmonary disease, unspecified; E78.00 Pure hypercholesterolemia, unspecified; I25.10 Atherosclerotic heart disease of native coronary artery without angina pectoris; M19.90 Unspecified osteoarthritis, unspecified site; Z90.710 Acquired absence of both cervix and uterus; Z87.891 Personal history of nicotine dependence; Z88.8 Allergy status to other drugs, medicaments and biological substances
CPT/HCPCS: 93925; 99215

== ENCOUNTER → 2018-06-04 | Outpatient (CLI) | payer MEDICARE ==
[2018-04-17 10:54] VITALS: BP 129/76
== END | disposition home or self-care (01) ==
LOC: PMGWOUND 11:44
PROVIDERS: ATTEND Emergency Medicine Undersea and Hyperbaric Medicine
DX: I87.313 Chronic venous hypertension (idiopathic) with ulcer of bilateral lower extremity (principal); L97.521 Non-pressure chronic ulcer of other part of left foot limited to breakdown of skin; L97.511 Non-pressure chronic ulcer of other part of right foot limited to breakdown of skin; L97.221 Non-pressure chronic ulcer of left calf limited to breakdown of skin; L97.211 Non-pressure chronic ulcer of right calf limited to breakdown of skin; I70.235 Atherosclerosis of native arteries of right leg with ulceration of other part of foot; I70.245 Atherosclerosis of native arteries of left leg with ulceration of other part of foot; I13.0 Hypertensive heart and chronic kidney disease with heart failure and stage 1 through stage 4 chronic kidney disease, or unspecified chronic kidney disease; N18.3 Chronic kidney disease, stage 3 (moderate); I50.43 Acute on chronic combined systolic (congestive) and diastolic (congestive) heart failure; F03.90 Unspecified dementia, unspecified severity, without behavioral disturbance, psychotic disturbance, mood disturbance, and anxiety; J44.9 Chronic obstructive pulmonary disease, unspecified; I48.2 Chronic atrial fibrillation; E78.5 Hyperlipidemia, unspecified; M19.90 Unspecified osteoarthritis, unspecified site; I25.10 Atherosclerotic heart disease of native coronary artery without angina pectoris; E78.00 Pure hypercholesterolemia, unspecified; I42.9 Cardiomyopathy, unspecified; E66.9 Obesity, unspecified; Z68.25 Body mass index [BMI] 25.0-25.9, adult; Z79.01 Long term (current) use of anticoagulants; Z79.899 Other long term (current) drug therapy; Z90.710 Acquired absence of both cervix and uterus; Z87.891 Personal history of nicotine dependence
CPT/HCPCS: 93923; 97597

== ENCOUNTER → 2018-06-19 | Outpatient (CLI) | payer MEDICARE ==
[2018-04-17 10:54] VITALS: BP 129/76
== END | disposition home or self-care (01) ==
LOC: PMGWOUND 11:19
PROVIDERS: ATTEND Emergency Medicine Undersea and Hyperbaric Medicine
DX: I87.313 Chronic venous hypertension (idiopathic) with ulcer of bilateral lower extremity (principal); L97.811 Non-pressure chronic ulcer of other part of right lower leg limited to breakdown of skin; L97.821 Non-pressure chronic ulcer of other part of left lower leg limited to breakdown of skin; L97.221 Non-pressure chronic ulcer of left calf limited to breakdown of skin; L97.521 Non-pressure chronic ulcer of other part of left foot limited to breakdown of skin; I70.245 Atherosclerosis of native arteries of left leg with ulceration of other part of foot; I70.235 Atherosclerosis of native arteries of right leg with ulceration of other part of foot; I13.0 Hypertensive heart and chronic kidney disease with heart failure and stage 1 through stage 4 chronic kidney disease, or unspecified chronic kidney disease; N18.3 Chronic kidney disease, stage 3 (moderate); I50.43 Acute on chronic combined systolic (congestive) and diastolic (congestive) heart failure; F03.90 Unspecified dementia, unspecified severity, without behavioral disturbance, psychotic disturbance, mood disturbance, and anxiety; I48.2 Chronic atrial fibrillation; J44.9 Chronic obstructive pulmonary disease, unspecified; I42.9 Cardiomyopathy, unspecified; E78.00 Pure hypercholesterolemia, unspecified; E78.5 Hyperlipidemia, unspecified; M19.90 Unspecified osteoarthritis, unspecified site; I25.10 Atherosclerotic heart disease of native coronary artery without angina pectoris; E66.9 Obesity, unspecified; Z68.25 Body mass index [BMI] 25.0-25.9, adult; Z90.710 Acquired absence of both cervix and uterus; Z87.891 Personal history of nicotine dependence
CPT/HCPCS: 97597

== ENCOUNTER → 2018-07-03 | Outpatient (CLI) | payer MEDICARE ==
[2018-04-17 10:54] VITALS: BP 129/76
== END | disposition home or self-care (01) ==
LOC: PMGWOUND 08:49
PROVIDERS: ATTEND Emergency Medicine Undersea and Hyperbaric Medicine
DX: I87.312 Chronic venous hypertension (idiopathic) with ulcer of left lower extremity (principal); L97.521 Non-pressure chronic ulcer of other part of left foot limited to breakdown of skin; L97.221 Non-pressure chronic ulcer of left calf limited to breakdown of skin; I70.245 Atherosclerosis of native arteries of left leg with ulceration of other part of foot; I13.0 Hypertensive heart and chronic kidney disease with heart failure and stage 1 through stage 4 chronic kidney disease, or unspecified chronic kidney disease; N18.3 Chronic kidney disease, stage 3 (moderate); I50.43 Acute on chronic combined systolic (congestive) and diastolic (congestive) heart failure; J44.9 Chronic obstructive pulmonary disease, unspecified; F03.90 Unspecified dementia, unspecified severity, without behavioral disturbance, psychotic disturbance, mood disturbance, and anxiety; I48.2 Chronic atrial fibrillation; E78.5 Hyperlipidemia, unspecified; M19.90 Unspecified osteoarthritis, unspecified site; I42.9 Cardiomyopathy, unspecified; E78.00 Pure hypercholesterolemia, unspecified; I25.10 Atherosclerotic heart disease of native coronary artery without angina pectoris; E66.9 Obesity, unspecified; Z68.25 Body mass index [BMI] 25.0-25.9, adult; Z90.710 Acquired absence of both cervix and uterus; Z87.891 Personal history of nicotine dependence
CPT/HCPCS: 99214; G0463

== ENCOUNTER → 2018-07-10 | Outpatient (CLI) | payer MEDICARE ==
[2018-04-17 10:54] VITALS: BP 129/76
== END | disposition home or self-care (01) ==
LOC: PMGWOUND 08:56
PROVIDERS: ATTEND Emergency Medicine Undersea and Hyperbaric Medicine
DX: I87.313 Chronic venous hypertension (idiopathic) with ulcer of bilateral lower extremity (principal); L97.221 Non-pressure chronic ulcer of left calf limited to breakdown of skin; L97.521 Non-pressure chronic ulcer of other part of left foot limited to breakdown of skin; I70.245 Atherosclerosis of native arteries of left leg with ulceration of other part of foot; I11.0 Hypertensive heart disease with heart failure; I50.43 Acute on chronic combined systolic (congestive) and diastolic (congestive) heart failure; J44.9 Chronic obstructive pulmonary disease, unspecified; I48.2 Chronic atrial fibrillation; F03.90 Unspecified dementia, unspecified severity, without behavioral disturbance, psychotic disturbance, mood disturbance, and anxiety; I48.91 Unspecified atrial fibrillation; E78.5 Hyperlipidemia, unspecified; I25.10 Atherosclerotic heart disease of native coronary artery without angina pectoris; E78.00 Pure hypercholesterolemia, unspecified; M19.90 Unspecified osteoarthritis, unspecified site; E66.9 Obesity, unspecified; Z68.25 Body mass index [BMI] 25.0-25.9, adult; Z90.710 Acquired absence of both cervix and uterus; Z87.891 Personal history of nicotine dependence
CPT/HCPCS: 99214; G0463

== ENCOUNTER → 2018-07-24 | Outpatient (CLI) | payer MEDICARE ==
[2018-04-17 10:54] VITALS: BP 129/76
== END | disposition home or self-care (01) ==
LOC: PMGWOUND 09:24
PROVIDERS: ATTEND Emergency Medicine Undersea and Hyperbaric Medicine
DX: I87.302 Chronic venous hypertension (idiopathic) without complications of left lower extremity (principal); L97.528 Non-pressure chronic ulcer of other part of left foot with other specified severity; L97.828 Non-pressure chronic ulcer of other part of left lower leg with other specified severity; I70.245 Atherosclerosis of native arteries of left leg with ulceration of other part of foot; I13.0 Hypertensive heart and chronic kidney disease with heart failure and stage 1 through stage 4 chronic kidney disease, or unspecified chronic kidney disease; N18.3 Chronic kidney disease, stage 3 (moderate); I50.43 Acute on chronic combined systolic (congestive) and diastolic (congestive) heart failure; I48.2 Chronic atrial fibrillation; J44.9 Chronic obstructive pulmonary disease, unspecified; F03.90 Unspecified dementia, unspecified severity, without behavioral disturbance, psychotic disturbance, mood disturbance, and anxiety; E78.5 Hyperlipidemia, unspecified; I25.10 Atherosclerotic heart disease of native coronary artery without angina pectoris; M19.90 Unspecified osteoarthritis, unspecified site; E78.00 Pure hypercholesterolemia, unspecified; I42.9 Cardiomyopathy, unspecified; E66.9 Obesity, unspecified; Z68.25 Body mass index [BMI] 25.0-25.9, adult; Z87.891 Personal history of nicotine dependence; Z90.710 Acquired absence of both cervix and uterus
CPT/HCPCS: 99213